=== PATIENT | female | born 1980 | race Caucasian/White ===

== ENCOUNTER 2019-04-07 07:34 | Outpatient (CLI) | payer SELFPAY | END 2019-04-07 09:53 | disposition home or self-care (01) | LOC: OBT 07:34 → L-D 07:34 → OBT 08:01 → L-D 08:04 → OBT 09:53 | DX: O62.9 Abnormality of forces of labor, unspecified (principal); O09.513 Supervision of elderly primigravida, third trimester; Z3A.39 39 weeks gestation of pregnancy | CPT/HCPCS: G0463 ==

== ENCOUNTER 2019-04-07 15:58 | Inpatient (IN) | payer MEDICAID ==
[2019-04-07] MEDS ORDERED: MISOPROSTOL 200 MCG TAB PR (16:30)
[2019-04-07] MEDS ORDERED: METHYLERGONOVINE 0.2 MG INJ IM (16:30)
[2019-04-07] MEDS ORDERED: OXYTOCIN 30 UNITS/LR 500 ML IV ×2 (16:30)
[2019-04-07] MEDS ORDERED: OXYCODONE/ASPIRIN (4.88/325) TAB PO (16:30)
[2019-04-07] MEDS ORDERED: CARBOPROST 250 MCG INJ IM (16:30)
[2019-04-07] MEDS ORDERED: LIDOCAINE 1% (MPF) 30 ML INJ INJ (16:30)
[2019-04-07] MEDS ORDERED: IBUPROFEN 600 MG TAB PO (16:30)
[2019-04-07] MEDS ORDERED: BUTORPHANOL 2 MG INJ IV ×2 (16:30)
[2019-04-07 16:41] LABS: ADD MAN DIFF? NO
[2019-04-07 16:42] LABS: WHITE BLOOD COUNT 12.4 10^3/ul (4.8-10.8)
[2019-04-07 16:42] LABS: RED BLOOD COUNT 4.15 10^6/ul (4.20-5.40)
[2019-04-07 16:43] LABS: BASOPHIL # 0.1 10^3/ul (0.0-0.1); BASOPHILS % 0.4 % (0.0-2.0); HEMATOCRIT 38.7 % (37.0-47.0); HEMOGLOBIN 13.3 g/dl (12.0-16.0); LYMPHOCYTES # 1.2 10^3/ul (0.8-2.9); LYMPHOCYTES % 9.5 % (15.0-51.0); MEAN CORPUSCULAR HGB CONC 34.4 g/dl (32.0-37.0); MEAN CORPUSCULAR VOLUME 93.3 fl (82.0-101.0); MEAN PLATELET VOLUME 10.7 fl (7.4-10.4); MONOCYTE # 0.9 10^3/ul (0.3-0.9); NEUTROPHIL # 10.2 10^3/ul (1.6-7.5); NEUTROPHILS % 82.8 % (39.0-77.0); PLATELET COUNT 181 10^3/UL (140-415); RED CELL DISTRIBUTION WIDTH 12.3 % (11.5-14.5)
[2019-04-07 17:07] LABS: INR 0.94; PARTIAL THROMBOPLASTIN TIME 30.6 Sec (23.0-35.0); PROTIME 12.7 Sec (11.9-14.9)
[2019-04-07] MEDS ORDERED: FENTAnyl 2MCG/ML-ROPIV 0.2% 100 ML (17:10)
[2019-04-07] MEDS: LACTATED RINGER'S 1,000 ML IV ×3 (17:11→18:53)
[2019-04-07] MEDS ORDERED: CITRIC ACID/NA CITRATE 30 ML CUP PO (17:30)
[2019-04-07] MEDS ORDERED: METOCLOPRAMIDE 10 MG INJ IV (17:30)
[2019-04-07] MEDS ORDERED: DIPHENHYDRAMINE 50 MG INJ IV (17:30)
[2019-04-07] MEDS ORDERED: NALOXONE (0.4 MG/ML) INJ IV (17:30)
[2019-04-07] MEDS ORDERED: ONDANSETRON 4 MG INJ IV (17:30)
[2019-04-07] MEDS ORDERED: FAMOTIDINE 20 MG INJ IV (17:30)
[2019-04-07 17:34] LABS: HEPATITIS B SURFACE ANTIGEN NEGATIVE (NEGATIVE)
[2019-04-07 21:31] LABS: RAPID PLASMA REAGIN NONREACTIVE (NR)
[2019-04-08] MEDS: FENTAnyl 2MCG/ML-ROPIV 0.2% 100 ML BAG EPI ×5 (00:58→19:28)
[2019-04-08] MEDS: LACTATED RINGER'S 1,000 ML IV ×2 (02:54→10:49)
[2019-04-08] MEDS ORDERED: OXYTOCIN 30 UNITS/LR 500 ML IV ×2 (15:00→23:30)
[2019-04-08] MEDS: OXYTOCIN 30 UNITS/LR 500 ML IV ×2 (15:09→22:56)
[2019-04-08] MEDS ORDERED: AMPICILLIN 2 GM/NS (PMX) 100 ML (16:07)
[2019-04-08] MEDS: AMPICILLIN 2 GM/NS (PMX) 100 ML IV (16:14)
[2019-04-08] MEDS: AMPICILLIN 1 GM/NS (PMX) 50 ML IV (21:08)
[2019-04-08 22:56] LABS: CBV Base Excess -18.9 mmol/L; CBV COHb 0.3 %; CBV Total Hemglobin 16.2 g/dl; Fraction OxyHgb Cord Venous 16.6 %; MODE ROOM AIR; MetHgb Cord Venous 2.1 %; Sample Type CBV; Site CORD
[2019-04-08] MEDS ORDERED: ONDANSETRON 4 MG INJ IV (23:30)
[2019-04-08] MEDS ORDERED: NA PHOSPHATE/BIPHOS 133 ML ENEMA PR (23:30)
[2019-04-08] MEDS ORDERED: MAGNESIUM HYDROXIDE 30ML CUP PO (23:30)
[2019-04-08] MEDS ORDERED: DIPHENHYDRAMINE 50 MG INJ IV (23:30)
[2019-04-08] MEDS ORDERED: DIPHENHYDRAMINE 25 MG CAP PO (23:30)
[2019-04-08] MEDS ORDERED: MISOPROSTOL 200 MCG TAB PR (23:30)
[2019-04-08] MEDS ORDERED: SENNA/DOCUSATE NA (8.6MG/50MG) TAB PO (23:30)
[2019-04-08] MEDS ORDERED: CARBOPROST 250 MCG INJ IM (23:30)
[2019-04-08] MEDS ORDERED: ONDANSETRON 4 MG TAB PO (23:30)
[2019-04-08] MEDS ORDERED: HYDROCODONE/APAP (5/325) TAB PO (23:30)
[2019-04-09] MEDS: DIBUCAINE 1% 30 GM OINT TOP (02:43)
[2019-04-09] MEDS: BENZOCAINE 20% 56 ML SPRAY TOP (02:43)
[2019-04-09] MEDS: WITCH HAZEL/GLYCERIN PAD PR (02:43)
[2019-04-09] MEDS: LACTATED RINGER'S 1,000 ML IV* (02:43)
[2019-04-09] MEDS: IBUPROFEN 600 MG TAB PO ×4 (05:32→17:54)
[2019-04-09] MEDS: LEVOTHYROXINE 100 MCG TAB PO (06:08)
[2019-04-09 07:41] LABS: ADD MAN DIFF? NO
[2019-04-09 07:48] LABS: ABNORMAL IP MESSAGE 1; BASOPHIL # 0.1 10^3/ul (0.0-0.1); BASOPHILS % 0.3 % (0.0-2.0); EOSINOPHILS % 0.1 % (0.0-7.0); HEMATOCRIT 34.7 % (37.0-47.0); HEMOGLOBIN 12.1 g/dl (12.0-16.0); LYMPHOCYTES # 1.2 10^3/ul (0.8-2.9); LYMPHOCYTES % 5.8 % (15.0-51.0); MEAN CORPUSCULAR HEMOGLOBIN 32.6 pg (29.0-33.0); MEAN CORPUSCULAR HGB CONC 34.9 g/dl (32.0-37.0); MEAN CORPUSCULAR VOLUME 93.5 fl (82.0-101.0); MONOCYTE # 1.9 10^3/ul (0.3-0.9); MONOCYTES % 8.9 % (0.0-11.0); NEUTROPHIL # 17.9 10^3/ul (1.6-7.5); NEUTROPHILS % 84.3 % (39.0-77.0); PLATELET COUNT 155 10^3/UL (140-415); RED BLOOD COUNT 3.71 10^6/ul (4.20-5.40); RED CELL DISTRIBUTION WIDTH 12.3 % (11.5-14.5)
[2019-04-09 07:48] LABS: WHITE BLOOD COUNT 21.2 10^3/ul (4.8-10.8)
[2019-04-09 07:53] LABS: POSITIVE DIFF @See below
[2019-04-09] MEDS: SENNA/DOCUSATE NA (8.6MG/50MG) TAB PO ×2 (09:01→22:16)
[2019-04-09] MEDS: HYDROCODONE/APAP (5/325) TAB PO (09:02)
[2019-04-10] MEDS: LANOLIN HPA 1 PKT TOP (00:18)
[2019-04-10] MEDS: IBUPROFEN 600 MG TAB PO ×3 (00:18→12:11)
[2019-04-10] MEDS: LEVOTHYROXINE 100 MCG TAB PO (05:47)
[2019-04-10 08:17] LABS: ADD MAN DIFF? NO
[2019-04-10 08:25] LABS: BASOPHIL # 0.1 10^3/ul (0.0-0.1); BASOPHILS % 0.5 % (0.0-2.0); EOSINOPHILS # 0.4 10^3/ul (0.0-0.5); EOSINOPHILS % 3.1 % (0.0-7.0); HEMATOCRIT 33.7 % (37.0-47.0); HEMOGLOBIN 11.6 g/dl (12.0-16.0); LYMPHOCYTES # 2.3 10^3/ul (0.8-2.9); LYMPHOCYTES % 19.3 % (15.0-51.0); MEAN CORPUSCULAR HEMOGLOBIN 32.9 pg (29.0-33.0); MEAN CORPUSCULAR HGB CONC 34.4 g/dl (32.0-37.0); MEAN CORPUSCULAR VOLUME 95.5 fl (82.0-101.0); MEAN PLATELET VOLUME 11.3 fl (7.4-10.4); MONOCYTES % 8.4 % (0.0-11.0); NEUTROPHIL # 8.1 10^3/ul (1.6-7.5); PLATELET COUNT 152 10^3/UL (140-415); RED BLOOD COUNT 3.53 10^6/ul (4.20-5.40); RED CELL DISTRIBUTION WIDTH 12.7 % (11.5-14.5)
[2019-04-10] MEDS: VARICELLA VACCINE LIVE/PF 1,350 UNIT/0.5 ML ML SC* (09:00)
[2019-04-10] MEDS: DIPHTH/TET/ACEL PERTUSS (ADULT) 0.5 ML VIAL IM* (09:00)
[2019-04-10] MEDS: MEASLES,MUMPS,RUBELLA VACCINE INJ SC* (09:00)
[2019-04-10] MEDS: SENNA/DOCUSATE NA (8.6MG/50MG) TAB PO (12:11)
== END 2019-04-10 14:10 | disposition home or self-care (01) | DRG 807 ==
LOC: L-D 15:58 → PP1 04-09 00:28
PROVIDERS: Specialist
PROC: 10E0XZZ Delivery of Products of Conception, External Approach (ICD-10-PCS; principal; 2019-04-08)
DX: O80 Encounter for full-term uncomplicated delivery (principal); Z37.0 Single live birth; Z3A.39 39 weeks gestation of pregnancy
CPT/HCPCS: 36415; 62322; 82803; 85025; 85610; 85730; 86592; 86850; 86900; 86901; 87340; 90716; 99464